=== PATIENT | male | born 1965 | race Caucasian/White ===

== ENCOUNTER 2018-07-05 22:25 | Inpatient (IN) ==
[2018-07-05] MEDS ORDERED: GI COCKTAIL ED USE PO ONE (22:45)
--- NOTE | 2018-07-05 23:01 | XRay Report ---
XR chest 1V portable CLINICAL HISTORY: 53 years-old Male presenting with esophageal foreign body. TECHNIQUE: Portable upright AP view of the chest was obtained. COMPARISON: None. FINDINGS: Cardiomediastinal silhouette normal. No focal opacity. No large effusion or pneumothorax. Degenerativ e changes of the thoracic spine. Upper abdomen normal. IMPRESSION: 1. No acute cardiopulmonary disease. Electronically signed by: Christiano Cooper M.D. 07/05/2018 11:00 PM
--- NOTE | 2018-07-05 23:15 | Emergency Department Note ---
Entered by Leonel Hoffman acting as a scribe for Bony Mckee DO History of Present Illness General Chief complaint: Food Bolus Stated complaint: CHOKING, CAN'T SWALLOW Source: patient Limitations: no limitations History of Present Illness Onset (ago): hour(s) 7 Location: chest Severity: similar to prior episodes Maximum Pain Intensity: 0 Exacerbated By: + eating Associated symptoms: + nausea/vomiting and + other (couldn't swallow) The patient is a 53 year old male who presents to the Emergency Room with complaints of a food bolus that occurred 7 hours ago. The patient states he was cutting up a turkey breast and ate a couple pieces when he started gagging. He notes he spit some of the turkey breast out. He states from that time till he was in triage he felt like he could not swallow. The patient states while he was sitting in triage he gagged and vomited. He states he feels better after vomiting but still feels like he has something logged. The patient states he has had episodes like this before. He states he has minor episodes when he eats. He notes he has an episode about once a month. He states a severe episode happened 3 months ago and he felt fine within 2 hours after the episode. The patient states he had a scope in 2004 and he states nothing was found at that time. The patient states he takes Zoloft, metformin, and cholesterol medication. The patient states his PCP is Dr. Stone Briscoe. Home Medications Home Medications Medication Instructions Recorded Confirmed Type cetirizine [Zyrtec] 10 mg PO QAM 07/05/18 07/05/18 History metformin 500 mg PO AMHS 07/05/18 07/05/18 History metoprolol succinate 12.5 mg PO BID 07/05/18 07/05/18 History multivitamin 1 tab PO QAM 07/05/18 07/05/18 History rosuvastatin [Crestor] 10 mg PO HS 07/05/18 07/05/18 History sertraline [Zoloft] 100 mg PO DAILY 07/05/18 07/05/18 History amoxicillin-pot clavulanate 2 tab PO Q12H 5 Days #20 tab 07/06/18 Rx omeprazole 40 mg PO DAILY 30 Days #30 cap 07/06/18 Rx Allergies Allergy/AdvReac Type Severity Reaction Status Date / Time azithromycin Allergy Unknown HAPPENED Verified 07/05/18 22:56 A CHILD doxycycline AdvReac Intermediate Dizziness Verified 07/05/18 22:56 aspirin AdvReac Nose Bleed Verified 07/05/18 22:56 Past Med/Surg History Medical History Anxiety Diabetes Family History Other Family history non-contributory Social History Current Living Situation: Spouse Other Information That Helps Us Care for You: No Feels Safe at Home: Yes Safety Concerns: Feels Safe At This Time Smoking Status: Never smoker Do You Dip or Chew Tobacco: No Hx Alcohol Use: No Hx Substance Use: No Beliefs That Will Affect Care: None Preferred Language: Sinhala Review of Systems See HPI for pertinent positives & negatives. and A total of 10 systems reviewed and were otherwise negative Physical Exam Vital Signs Vital Signs - 24 hr 07/05/18 22:26 07/05/18 23:06 07/05/18 23:37 Temperature 37.2 C Temperature Source Oral Sepsis Recent Fever Within 48 Hours No Sepsis Action Taken by Nursing No Action Required Pulse Rate 94 H Pulse Rate [Apical] Pulse Rate [Finger] 80 Pulse Rhythm [Apical] Pulse Strength [Apical] Respiratory Rate 20 18 Respiratory Effort / Characteristics Respiratory Depth Respiratory Pattern Blood Pressure 157/103 H Blood Pressure [Left Arm] Blood Pressure [Right Arm] 147/80 H Blood Pressure Mean 121 Blood Pressure Mean [Left Arm] Blood Pressure Mean [Right Arm] 102 Blood Pressure Position Sitting Blood Pressure Position [Left Arm] Pulse Oximetry 96 95 Oxygen Delivery Method Room Air Room Air Room Air Oxygen Flow Rate 07/06/18 00:51 07/06/18 01:10 07/06/18 02:29 Temperature 36.5 C Temperature Source Temporal Artery Scan Sepsis Recent Fever Within 48 Hours Sepsis Action Taken by Nursing Pulse Rate 62 77 Pulse Rate [Apical] 80 Pulse Rate [Finger] 62 Pulse Rhythm [Apical] Regular Pulse Strength [Apical] Respiratory Rate 18 16 16 Respiratory Effort / Characteristics Non-Labored Spontaneous Non-Labored Spontaneous Respiratory Depth Normal Normal Respiratory Pattern Regular Blood Pressure 132/76 101/49 L Blood Pressure [Left Arm] 111/49 L Blood Pressure [Right Arm] 132/76 Blood Pressure Mean 66 Blood Pressure Mean [Left Arm] 69 Blood Pressure Mean [Right Arm] 94 Blood Pressure Position Blood Pressure Position [Left Arm] Lying Pulse Oximetry 96 96 87 L Oxygen Delivery Method Room Air Room Air Oxymask Oxygen Flow Rate 10 07/06/18 02:31 07/06/18 02:34 07/06/18 02:35 Temperature Temperature Source Sepsis Recent Fever Within 48 Hours Sepsis Action Taken by Nursing Pulse Rate 78 75 75 Pulse Rate [Apical] Pulse Rate [Finger] Pulse Rhythm [Apical] Pulse Strength [Apical] Respiratory Rate 16 15 16 Respiratory Effort / Characteristics Respiratory Depth Respiratory Pattern Blood Pressure 95/50 L Blood Pressure [Left Arm] Blood Pressure [Right Arm] Blood Pressure Mean 65 Blood Pressure Mean [Left Arm] Blood Pressure Mean [Right Arm] Blood Pressure Position Blood Pressure Position [Left Arm] Pulse Oximetry 91 93 94 Oxygen Delivery Method Oxygen Flow Rate 07/06/18 02:36 07/06/18 02:40 07/06/18 02:41 Temperature Temperature Source Sepsis Recent Fever Within 48 Hours Sepsis Action Taken by Nursing Pulse Rate 78 74 73 Pulse Rate [Apical] Pulse Rate [Finger] Pulse Rhythm [Apical] Pulse Strength [Apical] Respiratory Rate 16 17 14 Respiratory Effort / Characteristics Respiratory Depth Respiratory Pattern Blood Pressure 92/53 L 90/42 L Blood Pressure [Left Arm] Blood Pressure [Right Arm] Blood Pressure Mean 66 58 Blood Pressure Mean [Left Arm] Blood Pressure Mean [Right Arm] Blood Pressure Position Blood Pressure Position [Left Arm] Pulse Oximetry 95 93 91 Oxygen Delivery Method Oxygen Flow Rate 07/06/18 02:44 07/06/18 02:45 07/06/18 02:47 Temperature Temperature Source Sepsis Recent Fever Within 48 Hours Sepsis Action Taken by Nursing Pulse Rate 76 77 71 Pulse Rate [Apical] Pulse Rate [Finger] Pulse Rhythm [Apical] Pulse Strength [Apical] Respiratory Rate 28 H 21 19 Respiratory Effort / Characteristics Respiratory Depth Respiratory Pattern Blood Pressure 103/54 L 92/49 L Blood Pressure [Left Arm] Blood Pressure [Right Arm] Blood Pressure Mean 70 63 Blood Pressure Mean [Left Arm] Blood Pressure Mean [Right Arm] Blood Pressure Position Blood Pressure Position [Left Arm] Pulse Oximetry 91 91 89 L Oxygen Delivery Method Oxygen Flow Rate 07/06/18 02:50 07/06/18 02:51 07/06/18 02:55 Temperature Temperature Source Sepsis Recent Fever Within 48 Hours Sepsis Action Taken by Nursing Pulse Rate 74 74 70 Pulse Rate [Apical] Pulse Rate [Finger] Pulse Rhythm [Apical] Pulse Strength [Apical] Respiratory Rate 14 13 14 Respiratory Effort / Characteristics Respiratory Depth Respiratory Pattern Blood Pressure 100/49 L Blood Pressure [Left Arm] Blood Pressure [Right Arm] Blood Pressure Mean 66 Blood Pressure Mean [Left Arm] Blood Pressure Mean [Right Arm] Blood Pressure Position Blood Pressure Position [Left Arm] Pulse Oximetry 91 90 92 Oxygen Delivery Method Oxygen Flow Rate 07/06/18 02:56 07/06/18 03:00 07/06/18 03:01 Temperature Temperature Source Sepsis Recent Fever Within 48 Hours Sepsis Action Taken by Nursing Pulse Rate 71 72 68 Pulse Rate [Apical] Pulse Rate [Finger] Pulse Rhythm [Apical] Pulse Strength [Apical] Respiratory Rate 20 21 19 Respiratory Effort / Characteristics Respiratory Depth Respiratory Pattern Blood Pressure 92/52 L 108/52 L Blood Pressure [Left Arm] Blood Pressure [Right Arm] Blood Pressure Mean 65 70 Blood Pressure Mean [Left Arm] Blood Pressure Mean [Right Arm] Blood Pressure Position Blood Pressure Position [Left Arm] Pulse Oximetry 91 91 89 L Oxygen Delivery Method Oxygen Flow Rate 07/06/18 03:05 07/06/18 03:07 07/06/18 03:08 Temperature Temperature Source Sepsis Recent Fever Within 48 Hours Sepsis Action Taken by Nursing Pulse Rate 69 70 70 Pulse Rate [Apical] 68 Pulse Rate [Finger] Pulse Rhythm [Apical] Pulse Strength [Apical] Respiratory Rate 15 20 16 Respiratory Effort / Characteristics Non-Labored Spontaneous Respiratory Depth Respiratory Pattern Blood Pressure 89/54 L Blood Pressure [Left Arm] Blood Pressure [Right Arm] Blood Pressure Mean 65 Blood Pressure Mean [Left Arm] Blood Pressure Mean [Right Arm] Blood Pressure Position Blood Pressure Position [Left Arm] Pulse Oximetry 96 98 97 Oxygen Delivery Method Nasal Cannula Oxygen Flow Rate 3.5 07/06/18 03:10 07/06/18 03:11 07/06/18 03:15 Temperature Temperature Source Sepsis Recent Fever Within 48 Hours Sepsis Action Taken by Nursing Pulse Rate 69 70 73 Pulse Rate [Apical] Pulse Rate [Finger] Pulse Rhythm [Apical] Pulse Strength [Apical] Respiratory Rate 23 19 16 Respiratory Effort / Characteristics Respiratory Depth Respiratory Pattern Blood Pressure 120/99 Blood Pressure [Left Arm] Blood Pressure [Right Arm] Blood Pressure Mean 106 Blood Pressure Mean [Left Arm] Blood Pressure Mean [Right Arm] Blood Pressure Position Blood Pressure Position [Left Arm] Pulse Oximetry 98 97 90 Oxygen Delivery Method Oxygen Flow Rate 07/06/18 03:16 07/06/18 03:25 07/06/18 03:38 Temperature 36.7 C Temperature Source Oral Sepsis Recent Fever Within 48 Hours Sepsis Action Taken by Nursing Pulse Rate 71 71 Pulse Rate [Apical] 76 Pulse Rate [Finger] Pulse Rhythm [Apical] Regular Pulse Strength [Apical] Normal Respiratory Rate 21 20 16 Respiratory Effort / Characteristics Non-Labored Respiratory Depth Normal Respiratory Pattern Regular Blood Pressure 100/51 L Blood Pressure [Left Arm] 110/51 L Blood Pressure [Right Arm] Blood Pressure Mean 67 Blood Pressure Mean [Left Arm] 70 Blood Pressure Mean [Right Arm] Blood Pressure Position Blood Pressure Position [Left Arm] Pulse Oximetry 92 90 91 Oxygen Delivery Method Nasal Cannula Oxygen Flow Rate 5 07/06/18 03:40 07/06/18 04:02 07/06/18 05:59 Temperature 36.9 C Temperature Source Oral Sepsis Recent Fever Within 48 Hours Sepsis Action Taken by Nursing Pulse Rate 72 Pulse Rate [Apical] Pulse Rate [Finger] 76 Pulse Rhythm [Apical] Pulse Strength [Apical] Respiratory Rate 14 18 Respiratory Effort / Characteristics Non-Labored Spontaneous Respiratory Depth Normal Respiratory Pattern Regular Blood Pressure Blood Pressure [Left Arm] 117/66 Blood Pressure [Right Arm] Blood Pressure Mean Blood Pressure Mean [Left Arm] 83 Blood Pressure Mean [Right Arm] Blood Pressure Position Blood Pressure Position [Left Arm] Lying Pulse Oximetry 92 96 Oxygen Delivery Method Nasal Cannula Nasal Cannula Oxygen Flow Rate 4 4 07/06/18 07:07 07/06/18 07:29 07/06/18 08:53 Temperature 36.6 C Temperature Source Oral Sepsis Recent Fever Within 48 Hours Sepsis Action Taken by Nursing Pulse Rate Pulse Rate [Apical] 83 Pulse Rate [Finger] 85 Pulse Rhythm [Apical] Pulse Strength [Apical] Respiratory Rate 16 Respiratory Effort / Characteristics Non-Labored Spontaneous Respiratory Depth Normal Normal Respiratory Pattern Regular Blood Pressure Blood Pressure [Left Arm] 95/54 L 126/63 Blood Pressure [Right Arm] Blood Pressure Mean Blood Pressure Mean [Left Arm] 67 84 Blood Pressure Mean [Right Arm] Blood Pressure Position Blood Pressure Position [Left Arm] Lying Lying Pulse Oximetry 95 Oxygen Delivery Method Nasal Cannula Oxygen Flow Rate 2 2 07/06/18 12:17 07/06/18 14:17 Temperature 37.2 C 37.2 C Temperature Source Oral Sepsis Recent Fever Within 48 Hours Sepsis Action Taken by Nursing Pulse Rate Pulse Rate [Apical] 83 Pulse Rate [Finger] 80 80 Pulse Rhythm [Apical] Pulse Strength [Apical] Respiratory Rate 16 16 Respiratory Effort / Characteristics Respiratory Depth Normal Respiratory Pattern Blood Pressure Blood Pressure [Left Arm] 120/68 120/68 Blood Pressure [Right Arm] 132/76 Blood Pressure Mean Blood Pressure Mean [Left Arm] 85 Blood Pressure Mean [Right Arm] Blood Pressure Position Blood Pressure Position [Left Arm] Lying Pulse Oximetry 95 95 Oxygen Delivery Method Room Air Oxygen Flow Rate GENERAL: Patient is awake, alert, and in no acute distress.Patient is resting comfortably and showing no signs of anxiety EYES: The conjunctivae are clear. The pupils are round and reactive. EARS, NOSE, MOUTH AND THROAT: The nose is without any evidence of any deformity. Mucous membranes are moist.Tongue is midline NECK: The neck is nontender and supple. RESPIRATORY: Normal respiratory effort is noted. There is no evidence of wheezing rhonchi or rales to auscultation. CARDIOVASCULAR: Regular rate and rhythm noted. There no murmurs rubs or gallops normal S1 normal S2 GASTROINTESTINAL: The abdomen is soft. Bowel sounds are present in all quadrants. Abdomen is nontender. MUSCULOSKELETAL/EXTREMITIES: There is no evidence of gross deformity. Full range of motion is noted in the hips and shoulders. SKIN: There is no obvious evidence of any rash. There are no petechiae, pallor or cyanosis noted. NEUROLOGIC: Patient is awake alert and oriented x3. Course 2245: Past medical records reviewed. The patient was evaluated in room B10, and a complete history and physical examination were performed. 0010: I reviewed the patient's case with Dr. Fernandez - [facility] Hospitalist. He will evaluate the patient for further management. Administered Medications Discontinued Medications Al Hydrox/Mg Hydrox/Simethicone () 1 dose PO ONE ONE Stop: 07/05/18 22:46 Last Admin: 07/05/18 23:05 Dose: 1 dose Albuterol (Ventolin 0.5% 2.5mg/0.5ml) 2.5 mg NEB NOW STA Stop: 07/06/18 02:35 Last Admin: 07/06/18 03:02 Dose: 2.5 mg Diazepam (Valium) 2.5 mg IV NOW STA Stop: 07/05/18 23:21 Last Admin: 07/05/18 23:46 Dose: 2.5 mg Diazepam (Valium) Confirm Administered Dose 5 mg .ROUTE .STK-MED ONE Stop: 07/05/18 23:40 Last Admin: 07/05/18 23:47 Dose: Not Given Glucagon (Glucagen) Confirm Administered Dose 1 mg .ROUTE .STK-MED ONE Stop: 07/05/18 23:36 Last Admin: 07/05/18 23:46 Dose: Not Given Glucagon (Glucagen) Confirm Administered Dose 1 mg .ROUTE .STK-MED ONE Stop: 07/06/18 02:46 Last Admin: 07/06/18 05:29 Dose: Not Given Glucagon 1 mg/ Syringe 1 mls @ 1 mls/min IV NOW STA Stop: 07/05/18 23:20 Last Admin: 07/05/18 23:46 Dose: 1 mls/min Pantoprazole Sodium 40 mg/ (Syringe) 10 mls @ 5 mls/min IV NOW ONE Stop: 07/05/18 23:20 Last Admin: 07/05/18 23:47 Dose: 5 mls/min Sodium Chloride (Nss 1000ml) 1,000 mls @ 999 mls/hr IV .Q1H1M [facility] Stop: 07/06/18 00:30 Last Infusion: 07/06/18 00:51 Dose: 0 mls/hr Admin: 07/05/18 23:45 Dose: 999 mls/hr Metronidazole (Flagyl) 500 mg in 100 mls @ 100 mls/hr IV Q8H [facility] Stop: 07/13/18 04:59 Last Infusion: 07/06/18 14:21 Dose: 0 mls/hr Admin: 07/06/18 13:16 Dose: 100 mls/hr Infusion: 07/06/18 06:33 Dose: 0 mls/hr Admin: 07/06/18 05:33 Dose: 100 mls/hr Levofloxacin/Dextrose (Levaquin/D5w) 750 mg in 150 mls @ 100 mls/hr IV Q24H [facility] Stop: 07/13/18 05:59 Last Infusion: 07/06/18 07:42 Dose: 0 mls/hr Admin: 07/06/18 06:12 Dose: 100 mls/hr Sodium Chloride (Nss) 500 mls @ 999 mls/hr IV .Q31M [facility] Stop: 08/05/18 03:29 Last Infusion: 07/06/18 04:35 Dose: 0 mls/hr Admin: 07/06/18 03:55 Dose: 999 mls/hr Potassium Chloride/Sodium Chloride (Normal Saline W/20 Meq Kcl) 20 meq in 1, 000 mls @ 250 mls/hr IV .Q4H [facility] Stop: 07/06/18 08:29 Last Infusion: 07/06/18 10:11 Dose: 0 mls/hr Admin: 07/06/18 06:11 Dose: 250 mls/hr Insulin Aspart (Novolog Flexpen) 0 units SC ACHS [facility] Stop: 08/05/18 07:29 Last Admin: 07/06/18 13:16 Dose: 1 units Admin: 07/06/18 08:54 Dose: 1 units Metoprolol Succinate (Toprol Xl) 12.5 mg PO BID [facility] Stop: 08/05/18 08:59 Last Admin: 07/06/18 08:59 Dose: 12.5 mg Sertraline HCl (Zoloft) 100 mg PO QAM [facility] Stop: 08/05/18 08:59 Last Admin: 07/06/18 08:59 Dose: 100 mg Medical Decision Making Differential Diagnosis Differential diagnosis in this patient could include aspiration, esophageal foreign body, esophageal mass, esophageal scarring, partial obstruction, reflux , and other differential diagnoses were considered. Medical Records Attestation: I reviewed the patient's medical records. Home Medications Current Medication List: was personally reviewed by me Laboratory Data Attestation: I reviewed the patient's lab results. Result diagrams: 07/05/18 23:30 07/05/18 23:30 Lab Results 07/05/18 07/05/18 07/06/18 Range/Units 23:30 23:30 03:15 WBC 7.17 (4.8-10.8) K/uL RBC 5.07 (4.7-6.1) M/uL Hgb 14.6 (14.0-18.0) g/dL Hct 42.6 (42-52) % MCV 84.0 (80-100) fL MCH 28.8 (25-34) pg MCHC 34.3 (32-36) g/dL RDW Std Deviation 41.5 (36.4-46.3) fL RDW Coeff of Dariusz 13.8 (11.5-14.5) % Plt Count 170 (130-400) K/uL MPV 9.4 (7.4-10.4) fL Immature Gran % (Auto) 0.6 % Neut % (Auto) 59.8 % Lymph % (Auto) 30.3 % [place] % (Auto) 6.1 % Eos % (Auto) 2.8 % Baso % (Auto) 0.4 % Immature Gran # (Auto) 0.04 H (0.00-0.02) K/uL Neut # (Auto) 4.29 (1.4-6.5) K/uL Lymph # (Auto) 2.17 (1.2-3.4) K/uL [place]rie # (Auto) 0.44 (0.11-0.59) K/uL Eos # (Auto) 0.20 (0-0.5) K/uL Baso # (Auto) 0.03 (0-0.2) K/uL Sodium 139 (136-145) mmol/L Potassium 3.6 (3.5-5.1) mmol/L Chloride 107 (98-107) mmol/L Carbon Dioxide 28 (21-32) mmol/L Anion Gap 4.0 (3-11) BUN 15 (7-18) mg/dl Creatinine 0.84 (0.6-1.4) mg/dl Est Cr Clr Drug Dosing 129.5 ml/min Est GFR ( Amer) 117.5 Est GFR (Non-Af Amer) 101.4 BUN/Creatinine Ratio 17.7 (10-20) Glucose 185 H (70-99) mg/dl POC Glucose 238 H (70-99) Calcium 9.1 (8.5-10.1) mg/dl Total Bilirubin 0.8 (0.2-1) mg/dl AST 23 (15-37) U/L ALT 50 (12-78) U/L Alkaline Phosphatase 83 (45-117) U/L Total Protein 7.3 (6.4-8.2) gm/dl Albumin 4.1 (3.4-5.0) gm/dl Globulin 3.2 (2.5-4.0) gm/dl Albumin/Globulin Ratio 1.3 (0.9-2) Lipase 109 (73-393) U/L Urine Color Urine Appearance (Clear) Urine pH (4.5-7.5) Ur Specific [place] (1.000-1.030) Urine Protein (Negative) Urine Glucose (UA) (Negative) Urine Ketones (Negative) Urine Blood (Negative) Urine Nitrite (Negative) Urine Bilirubin (Negative) Urine Urobilinogen (Negative) Ur Leukocyte Esterase (Negative) Urine WBC (Auto) (0-5) /hpf Urine RBC (Auto) (0-4) /hpf U Hyaline Cast (Auto) (0-5) /lpf U Epithel Cells (Auto) (0-5) /lpf Urine Bacteria (Auto) (Negative) 07/06/18 07/06/18 07/06/18 Range/Units 08:19 10:50 12:02 WBC (4.8-10.8) K/uL RBC (4.7-6.1) M/uL Hgb (14.0-18.0) g/dL Hct (42-52) % MCV (80-100) fL MCH (25-34) pg MCHC (32-36) g/dL RDW Std Deviation (36.4-46.3) fL RDW Coeff of Dariusz (11.5-14.5) % Plt Count (130-400) K/uL MPV (7.4-10.4) fL Immature Gran % (Auto) % Neut % (Auto) % Lymph % (Auto) % [place] % (Auto) % Eos % (Auto) % Baso % (Auto) % Immature Gran # (Auto) (0.00-0.02) K/uL Neut # (Auto) (1.4-6.5) K/uL Lymph # (Auto) (1.2-3.4) K/uL [place] # (Auto) (0.11-0.59) K/uL Eos # (Auto) (0-0.5) K/uL Baso # (Auto) (0-0.2) K/uL Sodium (136-145) mmol/L Potassium (3.5-5.1) mmol/L Chloride (98-107) mmol/L Carbon Dioxide (21-32) mmol/L Anion Gap (3-11) BUN (7-18) mg/dl Creatinine (0.6-1.4) mg/dl Est Cr Clr Drug Dosing ml/min Est GFR ( Amer) Est GFR (Non-Af Amer) BUN/Creatinine Ratio (10-20) Glucose (70-99) mg/dl POC Glucose 193 H 189 H (70-99) Calcium (8.5-10.1) mg/dl Total Bilirubin (0.2-1) mg/dl AST (15-37) U/L ALT (12-78) U/L Alkaline Phosphatase (45-117) U/L Total Protein (6.4-8.2) gm/dl Albumin (3.4-5.0) gm/dl Globulin (2.5-4.0) gm/dl Albumin/Globulin Ratio (0.9-2) Lipase (73-393) U/L Urine Color Dark Yellow Urine Appearance Clear (Clear) Urine pH 5.0 (4.5-7.5) Ur Specific [place] 1.028 (1.000-1.030) Urine Protein Trace H (Negative) Urine Glucose (UA) 2+ H (Negative) Urine Ketones Negative (Negative) Urine Blood Negative (Negative) Urine Nitrite Negative (Negative) Urine Bilirubin Negative (Negative) Urine Urobilinogen Negative (Negative) Ur Leukocyte Esterase Negative (Negative) Urine WBC (Auto) 1-5 (0-5) /hpf Urine RBC (Auto) 0-4 (0-4) /hpf U Hyaline Cast (Auto) 10-30 H (0-5) /lpf U Epithel Cells (Auto) 10-20 H (0-5) /lpf Urine Bacteria (Auto) Negative (Negative) Imaging Data Radiologist's Impression: Radiology results as stated below per my review and the radiologist's interpretation: XR chest 1V portable CLINICAL HISTORY: 53 years-old Male presenting with esophageal foreign body. TECHNIQUE: Portable upright AP view of the chest was obtained. COMPARISON: None. FINDINGS: Cardiomediastinal silhouette normal. No focal opacity. No large effusion or pneumothorax. Degenerative changes of the thoracic spine. Upper abdomen normal. IMPRESSION: 1. No acute cardiopulmonary disease. Electronically signed by: Christiano Cooper M.D. 07/05/2018 11:00 PM Blood Pressure Blood Pressure Findings: Normal blood pressure Blood Pressure Disposition: did not require urgent referral MDM Narrative The patient is a 53-year-old male who presented to the emergency department for an evaluation of difficulty swallowing. He was eating turkey prior to the onset of his symptoms. The patient had a history and physical exam consistent with an esophageal foreign body. We attempted conservative methods to relieve his symptoms however he continued to have significant esophageal foreign body sensation and then was unable to tolerate his secretions. I discussed his case with the on-call software support representative. They have agreed to evaluate the patient in the emergency department for possible upper endoscopy emergently. I discussed the patient's laboratory and radiographic studies with him. He was agreeable to evaluation by the GI doctor. Impression & Plan Esophageal foreign body Discharge Plan Visit Data *Final* Discharge Date/Time: 07/06/18 01:10 Chief Complaint: Food Bolus Stated Complaint: CHOKING, CAN'T SWALLOW ED Provider: Bony Mckee Discharge Problem: Esophageal foreign body Patient Disposition: Admitted As Inpatient Discharge Instructions Interventions: ED Discharge Assessment Last Done: 07/06/18 01:10 The scribe's documentation has been prepared under my direction and personally reviewed by me in its entirety. I confirm that the note above accurately reflects all work, treatment, procedures, and medical decision making performed by me.
[2018-07-05] MEDS ORDERED: PANTOprazole 40 MG in SYRINGE 0 ML IV ONE (23:19)
[2018-07-05] MEDS ORDERED: GLUCAGON 1 MG in SYRINGE 0 ML IV STA (23:19)
[2018-07-05] MEDS ORDERED: diazePAM INJ 5 MG/ML 2 ML CARP IV STA (23:20)
[2018-07-05] MEDS ORDERED: SODIUM CHLORIDE 0.9% 1000ML 1,000 ML IV SCH (23:30)
[2018-07-05] MEDS ORDERED: GLUCAGON FOR INJ 1 MG VIAL ONE (23:35)
[2018-07-05] MEDS ORDERED: DIAZEPAM 5 MG/ML INJ 10ML VIAL ONE (23:39)
[2018-07-05 23:40] LABS: Basophils # (auto) 0.03 K/uL (0-0.2); Basophils % (auto) 0.4 %; Eosinophils % (auto) 2.8 %; Hematocrit (blood only) 42.6 % (42-52); Hemoglobin 14.6 g/dL (14.0-18.0); Immature Granulocytes # (auto) 0.04 K/uL (0.00-0.02); Immature Granulocytes % (auto) 0.6 %; Lymphocytes # (auto) 2.17 K/uL (1.2-3.4); Lymphocytes % (auto) 30.3 %; Mean Corpuscular Hgb Conc 34.3 g/dL (32-36); Mean Platelet Volume 9.4 fL (7.4-10.4); Monocytes # (auto) 0.44 K/uL (0.11-0.59); Monocytes % (auto) 6.1 %; Neutrophils # (auto) 4.29 K/uL (1.4-6.5); Neutrophils % (auto) 59.8 %; Platelet Count 170 K/uL (130-400); RDW Coefficient of Variation 13.8 % (11.5-14.5); RDW Standard Deviation 41.5 fL (36.4-46.3); Red Blood Count 5.07 M/uL (4.7-6.1); White Blood Count 7.17 K/uL (4.8-10.8)
[2018-07-05 23:58] LABS: Albumin Level 4.1 gm/dl (3.4-5.0); BUN Creatinine Ratio 17.7 (10-20); Calcium 9.1 mg/dl (8.5-10.1); Creatinine Clr Calc Pharmacy 129.5 ml/min; Est GFR (African American) 117.5; Est GFR (Non-African American) 101.4; Potassium 3.6 mmol/L (3.5-5.1)
[2018-07-06 00:01] LABS: Albumin Globulin Ratio 1.3 (0.9-2); Bilirubin,Total 0.8 mg/dl (0.2-1); Globulin 3.2 gm/dl (2.5-4.0); Total Protein 7.3 gm/dl (6.4-8.2)
--- NOTE | 2018-07-06 00:44 | Gastrointestinal Consultation ---
Date of Consultation July 06, 2018 53 years old male patient with medical comorbids of HTN, DM, DLP, presented to the hospital feeling a food bolus stuck since after having lunch that had a turkey breast. Since then he feels dysphagia hence came to the hospital. He reports recurrent similar episodes in the past but usually self limited. Denies any SOB or drooling. No hematemesis or Hx of GERD> Assessment & Plan (1) Food impaction of esophagus: Will plan for urgent EGD. History of Present Illness Allergies Allergy/AdvReac Type Severity Reaction Status Date / Time azithromycin Allergy Unknown HAPPENED Verified 07/05/18 22:56 A CHILD doxycycline AdvReac Intermediate Dizziness Verified 07/05/18 22:56 aspirin AdvReac Nose Bleed Verified 07/05/18 22:56 Home Medications Home Medications Medication Instructions Recorded Confirmed Type cetirizine [Zyrtec] 10 mg PO QAM 07/05/18 07/05/18 History metformin 500 mg PO AMHS 07/05/18 07/05/18 History metoprolol succinate 12.5 mg PO BID 07/05/18 07/05/18 History multivitamin 1 tab PO QAM 07/05/18 07/05/18 History rosuvastatin [Crestor] 10 mg PO HS 07/05/18 07/05/18 History sertraline [Zoloft] 100 mg PO DAILY 07/05/18 07/05/18 History Patient History Medical History Anxiety Diabetes Family History Other Family history non-contributory Social History Feels Safe at Home: Yes Smoking Status: Never smoker Do You Dip or Chew Tobacco: No Hx Substance Use: No Review of Systems Constitutional: no fever, no chills, no fatigue and no weight loss Eyes: no eye pain and no worsening vision Ear, Nose, Mouth, Throat: no tinnitus, no dizziness, no nasal discharge and no epistaxis Respiratory: no cough, no dyspnea, no dyspnea on exertion and no wheezing Cardiovascular: no chest pain, no orthopnea, no palpitations and no edema Gastrointestinal: as per Subjective / HPI Musculoskeletal: no stiffness and no myalgia Neurologic: no localized weakness, no paralysis, no tremor(s) and no headache(s) Endocrine: no polydipsia and no polyuria Hematologic / Lymphatic: no easy bleeding and no night sweats Physical Exam 2 Vital Signs (Past 24 Hours): Last Vital Signs Temp 37.2 C 07/05/18 22:26 Pulse 80 07/05/18 23:06 Resp 18 07/05/18 23:06 BP 147/80 H 07/05/18 23:06 Pulse Ox 95 07/05/18 23:06 Constitutional: + well hydrated, cooperative and comfortable Eyes: PERRL, conjunctivae normal, anicteric sclerae ENMT: external ear and nose normal, oropharynx normal Neck: normal visual inspection and trachea midline Respiratory: normal respiratory effort, lungs clear to auscultation Auscultation: no wheezes Cardiovascular: RRR, no murmur, no edema Gastrointestinal (Abdomen): normal bowel sounds, soft, nontender, no hepatosplenomegaly Musculoskeletal: no cyanosis or clubbing, extremities motor strength 5/5 Skin: no rashes, warm and dry Neurologic: awake; no focal motor deficits Motor/Sensory: no tremor Results & Data Laboratory Results Laboratory Results - last 24 hr 07/05/18 07/05/18 23:30 23:30 WBC 7.17 RBC 5.07 Hgb 14.6 Hct 42.6 MCV 84.0 MCH 28.8 MCHC 34.3 RDW Std Deviation 41.5 RDW Coeff of Dariusz 13.8 Plt Count 170 MPV 9.4 Immature Gran % (Auto) 0.6 Neut % (Auto) 59.8 Lymph % (Auto) 30.3 [place] % (Auto) 6.1 Eos % (Auto) 2.8 Baso % (Auto) 0.4 Immature Gran # (Auto) 0.04 H Neut # (Auto) 4.29 Lymph # (Auto) 2.17 [place] # (Auto) 0.44 Eos # (Auto) 0.20 Baso # (Auto) 0.03 Sodium 139 Potassium 3.6 Chloride 107 Carbon Dioxide 28 Anion Gap 4.0 BUN 15 Creatinine 0.84 Est Cr Clr Drug Dosing 129.5 Est GFR ( Amer) 117.5 Est GFR (Non-Af Amer) 101.4 BUN/Creatinine Ratio 17.7 Glucose 185 H Calcium 9.1 Total Bilirubin 0.8 AST 23 ALT 50 Alkaline Phosphatase 83 Total Protein 7.3 Albumin 4.1 Globulin 3.2 Albumin/Globulin Ratio 1.3 Lipase 109
[2018-07-06] MEDS ORDERED: ONDANSETRON INJ 2 MG/ML 2 ML VIAL IV PRN (01:13)
[2018-07-06] MEDS ORDERED: ePHEDrine sulfate 50 MG/ML AMP IV PRN (01:13)
[2018-07-06] MEDS ORDERED: ATROPINE SULFATE 0.1 MG/ML 10ML SYR IV PRN (01:13)
[2018-07-06] MEDS ORDERED: fentaNYL citrate 100 MCG/2 ML VIAL IV PRN (01:13)
[2018-07-06] MEDS ORDERED: SUCCINYLCHOLINE CHLORIDE 20 MG/ML 10 ML VIAL ONE (01:14)
[2018-07-06] MEDS ORDERED: PROPOFOL IV EMULSION 10 MG/ML 20 ML VIAL IV ONE (01:14)
[2018-07-06] MEDS ORDERED: LIDOCAINE HCL 2% 2 ML VIAL/AMP(20MG/ML) INFIL ONE (01:14)
[2018-07-06] MEDS ORDERED: fentaNYL citrate 100 MCG/2 ML VIAL ONE ×2 (01:15)
--- NOTE | 2018-07-06 01:36 | Anesthesiology Consultation ---
Date of Service July 06, 2018 NIDDM HTN Obesity Assessment & Plan (1) Encounter for pre-operative examination: Chart Review Chart Review: Acceptable Risk for Surgery and Patient NOT seen in Pre Admission Testing Consults Requested none ASA ASA2E Proposed Anesthesia Anesthesia Type: General Risk / Benefits Reviewed With: PT / POA / Parent / Guardian, Accepts Plan and Informed Consent Obtained NPO Date Last Intake of Fluids: 07/06/18 Time Last Intake of Fluids: 00:00 Date Last Intake of Solids: 07/05/18 Time Last Intake of Solids: 06:00 History Surgery Operation Date: 07/06/18 01:05 Proposed Procedures p EGD Foreign Body Removal - Reynaldo Fernandez MD Height/Weight Height: 5 ft 11 in Weight: 107 kg Allergies Allergy/AdvReac Type Severity Reaction Status Date / Time azithromycin Allergy Unknown HAPPENED Verified 07/05/18 22:56 A CHILD doxycycline AdvReac Intermediate Dizziness Verified 07/05/18 22:56 aspirin AdvReac Nose Bleed Verified 07/05/18 22:56 Medications Home Medications Medication Instructions Recorded Confirmed Last Taken cetirizine [Zyrtec] 10 mg PO QAM 07/05/18 07/05/18 07/05/18 metformin 500 mg PO AMHS 07/05/18 07/05/18 07/05/18 AM metoprolol succinate 12.5 mg PO BID 07/05/18 07/05/18 07/05/18 AM multivitamin 1 tab PO QAM 07/05/18 07/05/18 07/05/18 rosuvastatin [Crestor] 10 mg PO HS 07/05/18 07/05/18 07/04/18 sertraline [Zoloft] 100 mg PO DAILY 07/05/18 07/05/18 07/05/18 Beta Ghazal Beta Ghazal Taken Within 24 Hours: Yes Past Medical History Medical History Anxiety Diabetes Past Family History Family History Other Family history non-contributory Past Anesthesia History No Hx of Anesthesia Complications History of PONV No Motion Sickness Screening History of Motion Sickness: No Social History Smoking Status: Never smoker Do You Dip or Chew Tobacco: No Hx Substance Use: No Exercise / Class Metabolic Activity II 4-5 Yardwork/Stairs/Walk up hill Physical Exam Vital Signs Last Vital Signs Temp 37.2 C 07/05/18 22:26 Pulse 62 07/06/18 01:10 Resp 16 07/06/18 01:10 BP 132/76 07/06/18 01:10 Pulse Ox 96 07/06/18 01:10 Constitutional + obese ENMT Mouth: no TMJ abnormality Thyromental Distance: > or= 3.5 Finger Breadths Mallampati Class: II Neck normal visual inspection and + thick neck Respiratory normal respiratory effort Cardiovascular Rate/Rhythm: regular rate and regular rhythm Neurologic moves all extremities Psychiatric Orientation: alert Testing Chest X-Ray Date: 07/05/18 Findings: + NAD Laboratory Results 07/05/18 23:30 07/05/18 23:30
--- NOTE | 2018-07-06 02:21 | Operative Report ---
Post Operative Report Pre & Post Diagnosis Operation Date: 07/06/18 01:05 Pre-Op Diagnosis: Food impaction Post-Op Diagnosis: Food impaction Procedure Operation Date: 07/06/18 01:05 Actual Procedures p Esophagogastroduodenoscopy for food impaction with Balloon Dilation(Not Applicable) - Reynaldo Fernandez MD Surgeon Reynaldo Fernandez MD Or Rn None Estimated Blood Loss 0 Findings See Below (Impacted meat at the GE junction, this was removed) Specimens None Description of Procedure EGD I attest to the content of the Intraoperative Record and any orders documented therein. Any exceptions are noted below.
[2018-07-06] MEDS ORDERED: ALBUTEROL 0.5% NEB SOLN 2.5 MG/0.5 ML VIAL NEB STA (02:34)
--- NOTE | 2018-07-06 02:44 | Anesthesiology Progress Note ---
Date of Service July 06, 2018 Anesthesia Post Procedure Vital Signs Vital Signs: Temp Pulse Pulse Resp BP BP Pulse Ox 07/06/18 01:10 62 16 132/76 96 07/06/18 00:51 62 18 132/76 96 07/05/18 23:06 80 18 147/80 H 95 07/05/18 22:26 37.2 C 94 H 20 157/103 H 96 Pain Intensity Chest: Pain Intensity: 3 Notes Mental Status: alert / awake / arousable Patient Amnestic to Procedure: Yes Nausea / Vomiting: adequately controlled Pain: adequately controlled Airway Patency, RR, SpO2: stable & adequate BP & HR: stable & adequate Hydration State: stable & adequate Anesthetic Complications: see Notes below Notes: Patient did receive a GI cocktail in ED prior to arrival in OR holding area. He vomited this, along with brittny winnie he was given in the ED. The patient was induced and as soon as intubation conditions were adequate, a laryngoscopy was performed. No positive pressure ventilation was performed. This showed copious white fluid in the oropharynx. After thorough suctioning, a grade III view was obtained, and so a glidescope 4 was used to obtain indirect laryngoscopy. Scant white fluid was visualized around the cords, and an 8.0ETT was passed. As oxygen saturations were beginning to drop in to the 80s, the ETT was not suctioned at this time and O2 saturations were quickly returned to 99. At the end of the procedure, the ETT was suctioned and the patient was extubated. He did have a good deal of coughing in PACU and oxygen saturations dropped below 90 without supplemental oxygen. An albuterol nebulizer was given and a CXR was performed, which was pending at the time of PACU discharge. Given the patient's symptoms, and need for continued supplemental oxygen, I recommended that the patient stay overnight in the hospital for observation and oxygen therapy. I have spoken with the patient and his , along with the hospitalist, who will admit the patient.
[2018-07-06] MEDS ORDERED: GLUCAGON FOR INJ 1 MG VIAL ONE (02:45)
--- NOTE | 2018-07-06 02:54 | Progress Note ---
Date of Service July 06, 2018 Subjective Patient underwent EGD for esophageal food impaction. During endotracheal intubation, white colored secretions which seems to be the GI cocktail that the patient had in the ED were noted in the pharynx. The procedure was uneventful and the food impaction was removed. Post procedure after extubation he had persistent cough and O2 sat in the 90 range hence after discussing with anasthesia attending we felt safer to observe the patient in the hospital over night for any signs of aspiration pneumonia and monitor his O2 sat as patient lives far away from the hospital. I spoke to the patient and his and they understood and agreed. Hospitalist was informed about the admission. Physical Exam 2 Vital Signs (Past 24 Hours): Last Vital Signs Temp 36.5 C 07/06/18 02:29 Pulse 76 07/06/18 02:44 Resp 28 H 07/06/18 02:44 BP 103/54 L 07/06/18 02:44 Pulse Ox 91 07/06/18 02:44
[2018-07-06] MEDS ORDERED: ACETAMINOPHEN 325 MG TAB PO PRN (03:04)
[2018-07-06] MEDS ORDERED: ALBUT/IPRATROP 3MG/0.5MG NEB 3 ML VIAL NEB PRN (03:09)
--- NOTE | 2018-07-06 03:13 | GI REPORT ---
Patient Name: Christiano Amador Procedure Date: 07/06/2018 1:15 AM Date of : 1965 Admit Type: Emergency Department Age: 53 Gender: Male Attending MD: Reynaldo Fernandez MD Procedure: Upper GI endoscopy Providers: Reynaldo Fernandez MD Referring MD: Bony Mckee Indications: Foreign body in the esophagus Medicines: General Anesthesia Complications: No immediate complications. Estimated Blood Loss: Estimated blood loss: none. Procedure: Pre-Anesthesia Assessment: - Prior to the procedure, a History and Physical was performed, and patient medications and allergies were reviewed. The patient is competent. The risks and benefits of the procedure and the sedation options and risks were discussed with the patient. All questions were answered and informed consent was obtained. Patient identification and proposed procedure were verified by the physician and the nurse in the procedure room. Mental Status Examination: alert and oriented. Airway Examination: normal oropharyngeal airway and neck mobility. Respiratory Examination: clear to auscultation. CV Examination: normal. ASA Grade Assessment: E - Emergency. After reviewing the risks and benefits, the patient was deemed in satisfactory condition to undergo the procedure. The anesthesia plan was to use general anesthesia. Immediately prior to administration of medications, the patient was re-assessed for adequacy to receive sedatives. The heart rate, respiratory rate, oxygen saturations, blood pressure, adequacy of pulmonary ventilation, and response to care were monitored throughout the procedure. The physical status of the patient was re-assessed after the procedure. After obtaining informed consent, the endoscope was passed under direct vision. Throughout the procedure, the patient's blood pressure, pulse, and oxygen saturations were monitored continuously. The Endoscope was introduced through the mouth, and advanced to the second part of duodenum. The upper GI endoscopy was accomplished without difficulty. The patient tolerated the procedure well. Findings: Food impaction was found in the lower third of the esophagus. The endoscope was removed, and an overtube with cap was fitted. The scope and overtube were then reinserted via the mouth and advanced to the esophagus to facilitate repeated passages of the scope. Removal was accomplished with a Raffaele grasping device and snare. Mucosal changes including ringed esophagus and longitudinal furrows were found in the entire esophagus. Biopsies were obtained from the proximal and distal esophagus with cold forceps for histology of suspected eosinophilic esophagitis. Verification of patient identification for the specimen was done by the physician and nurse using the patient's name and date. A moderate ring was found at the gastroesophageal junction. A TTS dilator was passed through the scope. Dilation with a 15-16.5-18 mm balloon dilator was performed to 18 mm. The entire examined stomach was normal. The duodenal bulb and second portion of the duodenum were normal. Impression: - Food impaction was found in the esophagus. Removal was successful. - Esophageal mucosal changes suggestive of eosinophilic esophagitis. Biopsied. - Moderate Schatzki ring. Dilated up to 18mm. - Normal stomach. - Normal duodenal bulb and second portion of the duodenum. - An overtube with cap was used to facilitate repeated passages of the scope. Recommendation: - Observe patient in PACU for observation. - Resume regular diet. - Follow an antireflux regimen. - Use Prilosec (omeprazole) 40 mg PO daily. - Await pathology results. - Follow up at GI office. Reynaldo Fernandez MD 07/06/2018 3:12:23 AM This report has been signed electronically. Note Initiated On: 07/06/2018 1:15 AM Number of Addenda: 0 I attest to the content of the Intraoperative Record and orders documented therein, exceptions below {[id number]}
--- NOTE | 2018-07-06 03:24 | History & Physical Report ---
Date of Service July 06, 2018 Assessment & Plan (1) Aspiration pneumonitis: 53 y/o M Hx HTN, HLD, DM, depression. Presented to the ER after eating turkey and feeling like it became lodged in his throat. This was confirmed on imaging. GI was called and the pt was removed to the ICU for endoscopy and food bolus extraction. During the procedure he aspirated and developed a cough and hypoxia. He is requiring supplemental oxygen and therefore could not be discharged following the procedure. 1) Aspiration - likely developing PNM although this may remain as pneumonitis. We will repeat a CXR AM. He has been placed on Levaquin/Flagyl, PRN nebs and an 02 protocol. 2) HTN - cont Metoprolol 3) DM II - placed on a SS 4) HLD - cont Crestor 5) Depression - cont Sertraline Full code - SCDs Total time for this admit including review of labs, meds, imaging, records - discussion with pt an anesthesiologist attending - 38 min History of Present Illness Chief Complaint: Aspiration following removal of a food bolus Primary Care Provider: Stone Briscoe, DO 53 y/o M Hx HTN, HLD, DM, depression. Presented to the ER after eating turkey and feeling like it became lodged in his throat. This was confirmed on imaging. GI was called and the pt was removed to the ICU for endoscopy and food bolus extraction. During the procedure he aspirated and developed a cough and hypoxia. He is requiring supplemental oxygen and therefore could not be discharged following the procedure. PMH: 1) HTN 2) DM II 3) HLD 4) Depression Social: No smoking history, does not drink in excess, employed in a warehouse Family: Father due to head oral cancer Allergies Allergy/AdvReac Type Severity Reaction Status Date / Time azithromycin Allergy Unknown HAPPENED Verified 07/05/18 22:56 A CHILD doxycycline AdvReac Intermediate Dizziness Verified 07/05/18 22:56 aspirin AdvReac Nose Bleed Verified 07/05/18 22:56 Home Medications Home Medications Medication Instructions Recorded Confirmed Type cetirizine [Zyrtec] 10 mg PO QAM 07/05/18 07/05/18 History metformin 500 mg PO AMHS 07/05/18 07/05/18 History metoprolol succinate 12.5 mg PO BID 07/05/18 07/05/18 History multivitamin 1 tab PO QAM 07/05/18 07/05/18 History rosuvastatin [Crestor] 10 mg PO HS 07/05/18 07/05/18 History sertraline [Zoloft] 100 mg PO DAILY 07/05/18 07/05/18 History Past Med/Surg History Medical History Anxiety Diabetes Family History Other Family history non-contributory Social History Feels Safe at Home: Yes Smoking Status: Never smoker Do You Dip or Chew Tobacco: No Hx Substance Use: No Review of Systems Gen: Denies fevers, night sweats, rigors, fatigue, malaise, weight loss/gain ENT: Presented due to turkey lodged in esophagus Eyes: Denies acute visual changes CV: Denies CP, palpitations Pulmonary: Did not have a cough or fever prior to the procedure GI: Denies N/V, diarrhea, constipation Neuro: Denies acute or unilateral weakness, acute gait impairment, headache or acute visual changes Musculoskeletal: Denies joint pain, inflammation Endocrine: Denies polydipsia, polyuria Skin: Denies acute rashes or ulcers Physical Exam 2 Vital Signs (Past 24 Hours): Last Vital Signs Temp 36.5 C 07/06/18 02:29 Pulse 68 07/06/18 03:05 Resp 18 07/06/18 03:05 BP 103/54 L 07/06/18 02:44 Pulse Ox 91 07/06/18 03:05 Physical Exam: General: AAO x 3, no distress - frequently coughing ENT: No erythema or exudates, no thrush Eyes: KELSEY, EOMI Head and neck: Normocephalic, atraumatic, No JVD, neck is supple. Chest/heart: Nontender, S1,2, RRR, no murmurs, no gallops Lungs: CTAB, no wheezing or crackles Abdomen: Nontender, nondistended, BS+ Neuro: AAO x 3, speech is clear, no unilateral weakness or loss of sensation, coordination intact Musculoskeletal: No joint inflammation, muscle tenderness, FROM Skin: No acute rashes or ulcers Extremities: No clubbing, cyanosis, edema
[2018-07-06] MEDS ORDERED: SODIUM CHLORIDE 0.9% 500 ML IV SCH (03:30)
[2018-07-06] MEDS ORDERED: GLUCOSE 10 TABS/TUBE PO PRN (04:29)
[2018-07-06] MEDS ORDERED: DEXTROSE 50% 50 ML SYRINGE IV PRN (04:29)
[2018-07-06] MEDS ORDERED: GLUCAGON FOR INJ 1 MG VIAL IM PRN (04:29)
[2018-07-06] MEDS ORDERED: GLUCOSE 40% GEL 15 GM TUBE PO PRN (04:29)
[2018-07-06] MEDS ORDERED: CARBOHYDRATES FOR HYPOGLYCEMIA PO PRN (04:29)
[2018-07-06] MEDS ORDERED: NSS + 20MEQ KCL 20 MEQ/1,000 ML BAG IV SCH (04:30)
[2018-07-06] MEDS: metroNIDAZOLE 500 MG/100 ML BAG IV SCH ×2 (05:33→13:16)
[2018-07-06] MEDS ORDERED: LEVOFLOXACIN/D5W 750 MG/150 ML BAG IV SCH (06:00)
--- NOTE | 2018-07-06 06:37 | XRay Report ---
XR chest 1V portable CLINICAL HISTORY: aspiration dyspnea COMPARISON STUDY: 07/05/2018 FINDINGS: Platelike atelectasis left base. Lungs otherwise are clear. Diaphragms are smooth. Costophr enic angles are sharp. IMPRESSION: Platelike atelectasis left base. Otherwise negative study. The above report was generated using voice recognition software. It may contain grammatical, syntax or spelling errors. Electronically signed by: Phan Dixon M.D. 07/06/2018 6:36 AM
--- NOTE | 2018-07-06 07:14 | XRay Report ---
XR chest 1V portable CLINICAL HISTORY: aspiration dyspnea COMPARISON STUDY: 07/06/2018 223 FINDINGS: Progressive left basilar infiltrate. Right lung remains clear. Diaphragms smooth. IMPRESSION: Progressive left basilar infiltrate The above report was generated using voice recognition software. It may contain grammatical, syntax or spelling errors. Electronically signed by: Phan Dixon M.D. 07/06/2018 7:12 AM
[2018-07-06] MEDS: INSULIN ASPART 100 UNITS/ML 3 ML PEN SC SCH ×2 (08:54→13:16)
[2018-07-06] MEDS ORDERED: SERTRALINE HCL 100 MG TABLET PO SCH (09:00)
[2018-07-06] MEDS ORDERED: METOPROLOL SUCC 25MG EXT REL TAB PO SCH (09:00)
[2018-07-06 11:04] LABS: Appearance Urine Clear (Clear); Bacteria Urine Automated Negative (Negative); Bilirubin Urine Negative (Negative); Color Urine Dark Yellow; Glucose Urine UA 2+ (Negative); Ketones Urine Negative (Negative); Leukocyte Esterase Urine Negative (Negative); Nitrite Urine Negative (Negative); Protein Urine Trace (Negative); Specific Gravity Urine 1.028 (1.000-1.030); Urobilinogen Urine Negative (Negative)
--- NOTE | 2018-07-06 13:21 | Progress Note ---
Date of Service July 06, 2018 Subjective I have seen and examined the patient today and he is feeling kanchan well. No cough or sputum. No respiratory distress. He was started on ABx. On exam: Clear breath sound bilaterally. Recommend: Please give PO PPI upon discharge. Follow up path to r/o EOE. Management of aspiration pneumonitis per primary team. Recall if needed. Physical Exam 2 Vital Signs (Past 24 Hours): Last Vital Signs Temp 37.2 C 07/06/18 12:17 Pulse 80 07/06/18 12:17 Resp 16 07/06/18 12:17 BP 120/68 07/06/18 12:17 Pulse Ox 95 07/06/18 12:17
[2018-07-06] MEDS ORDERED: ROSUVASTATIN CALCIUM 10 MG TAB PO SCH (21:00)
--- NOTE | 2018-07-08 10:02 | Anesthesiology Progress Note ---
Date of Service July 08, 2018 Subjective I called the patient this morning to follow up after his aspiration event early on Saturday. He was discharged the same day in good condition. His phone rang to voice mail, on which I left instructions to call the hospital and request our department if he had any questions or concerns.
--- NOTE | 2018-07-10 07:38 | Discharge Summary ---
Date of Service July 06, 2018 Admission HPI Per Admitting Provider 53 y/o M Hx HTN, HLD, DM, depression. Presented to the ER after eating turkey and feeling like it became lodged in his throat. This was confirmed on imaging. GI was called and the pt was removed to the ICU for endoscopy and food bolus extraction. During the procedure he aspirated and developed a cough and hypoxia. He is requiring supplemental oxygen and therefore could not be discharged following the procedure. PMH: 1) HTN 2) DM II 3) HLD 4) Depression Social: No smoking history, does not drink in excess, employed in a [employer] Family: Father due to head oral cancer Principal Diagnosis Aspiration Pneumonia Discharge Exam General: AAO x 3, no distress - no longer coughing. ENT: No erythema or exudates, no thrush Eyes: KELSEY, EOMI Head and neck: Normocephalic, atraumatic, No JVD, neck is supple. Chest/heart: Nontender, S1,2, RRR, no murmurs, no gallops Lungs: CTAB, no wheezing or crackles Abdomen: Nontender, nondistended, BS+ Neuro: AAO x 3, speech is clear, no unilateral weakness or loss of sensation, coordination intact Musculoskeletal: No joint inflammation, muscle tenderness, FROM Skin: No acute rashes or ulcers Extremities: No clubbing, cyanosis, edema Discharge Data Allergies Allergy/AdvReac Type Severity Reaction Status Date / Time azithromycin Allergy Unknown HAPPENED Verified 07/05/18 22:56 A CHILD doxycycline AdvReac Intermediate Dizziness Verified 07/05/18 22:56 aspirin AdvReac Nose Bleed Verified 07/05/18 22:56 Consultations 07/06/18 02:38 Consult Hospitalist Stat Procedures Performed Operation Date: 07/06/18 01:05 Actual Procedures p Esophagogastroduodenoscopy for food impaction with Balloon Dilation(Not Applicable) - Reynaldo Fernandez MD Hospital Course (1) Aspiration pneumonitis: 53 y/o M Hx HTN, HLD, DM, depression. Presented to the ER after eating turkey and feeling like it became lodged in his throat. This was confirmed on imaging. GI was called and the pt was removed to the ICU for endoscopy and food bolus extraction. During the procedure he aspirated and developed a cough and hypoxia. He is requiring supplemental oxygen and therefore could not be discharged following the procedure. 1) Aspiration - likely developing PNM although this may remain as pneumonitis. We will repeat a CXR AM. He has been placed on Levaquin/Flagyl, PRN nebs and an 02 protocol. On day 2 of hospital stay, patient was doing well. X-ray changes were noted. Will discharge patient on xray showing Progressive left basilar infiltrate. Patient will be discharged on augmentin. A work excuse was giving to patient for Saturday07/07/18 All questions were answered. D/W with GI who agrees patient can be discharged. Gi recommends PPI. Awaiting path of endoscopy to rule out eosinophilic esophagitis. 2) HTN - cont Metoprolol 3) DM II - placed on a SS 4) HLD - cont Crestor 5) Depression - cont Sertraline Full code - SCDs Total Time Total Time Spent Total Time Spent (In Minutes): 31 Total Time Includes: Examination of the Patient, Discharge Planning, Medication Reconciliation and Communication With Other Providers Discharge Plan Discharge Items Patient Disposition: Home - Self-Care Reason For Visit: POST OP ASPIRATION Discharge Diagnosis: Post op aspiration Discharge Goals: Decrease discomfort Activity: Resume your previous activity Non-emergency contact: Primary Care Provider Call non-emergency contact if: you have any medication questions Diet: Heart Healthy Addtl Provider Instructions: You are diagnosed with an aspiration pneumonia We will discharge you on an antibiotic. Please complete course even if you are feeling well. Prescriptions: New amoxicillin-pot clavulanate 1,000-62.5 mg tablet extended release 12 hr 2 tab PO Q12H 5 Days Qty: 20 RF: 0 omeprazole 40 mg capsule,delayed release(DR/EC) 40 mg PO DAILY 30 Days Qty: 30 RF: 0 Continue multivitamin Tablet 1 tab PO QAM RF: 0 metformin 500 mg Tablet 500 mg PO AMHS RF: 0 cetirizine [Zyrtec] 10 mg Tablet 10 mg PO QAM RF: 0 sertraline [Zoloft] 100 mg Tablet 100 mg PO DAILY RF: 0 metoprolol succinate 25 mg Tablet Extended Release 24 Hr 12.5 mg PO BID RF: 0 rosuvastatin [Crestor] 10 mg Tablet 10 mg PO HS RF: 0 Stand-Alone Forms: [facility], [facility] Discharge Orders: Discharge Order (Routine); Ordered 07/06/18 Ordered By: Robert Guzman Admission Data Admit Date/Time: 07/06/18 03:02 Attending Provider: Robert Guzman Admit Provider: David Jain Primary Care Provider: Stone Briscoe Other Providers: David Jain Service: Surgical Services Other Interventions: Discharge Summary Assessment (RN) Last Done: 07/06/18 14:17 DC Date/Time DO NOT enter until pt leaves facility: 07/06/18 15:01
== END 2018-07-06 15:01 | disposition home or self-care (01) | DRG 393 ==
LOC: ED 22:25 → 3W 07-06 01:10 → 2E 07-06 03:02 → SUATTDRO 07-06 03:02 → 3W 07-06 04:25